=== PATIENT | female | born 1940 | race Caucasian/White ===

== ENCOUNTER 2016-10-31 15:32 | Inpatient (IN) | payer MEDICARE, OTHER ==
[~2016-10-31] VITALS: Ht 154.9 cm; Wt 49.4 kg
[2016-10-31] MEDS ORDERED: IV NS 0.9% 1,000 ML ONE (15:49)
[2016-10-31] MEDS ORDERED: ONDANSETRON HCL/PF 4 MG/2 ML VIAL ONE (15:49)
[2016-10-31] MEDS ORDERED: CALC-866 PO (15:57)
[2016-10-31] MEDS ORDERED: ISOS30TA6 PO (15:57)
[2016-10-31] MEDS ORDERED: FERR325T28 PO (15:57)
[2016-10-31] MEDS ORDERED: NICO1PAT23 TD (15:57)
[2016-10-31] MEDS ORDERED: BISO5TAB2 PO (15:57)
[2016-10-31] MEDS ORDERED: ALBU2.5V13 IH (15:57)
[2016-10-31] MEDS ORDERED: ATOR40TA PO (15:57)
[2016-10-31] MEDS ORDERED: CYAN500T4 PO (15:57)
[2016-10-31] MEDS ORDERED: CLOP75TA2 PO (15:57)
[2016-10-31] MEDS ORDERED: MOME13HF IH (15:57)
[2016-10-31] MEDS ORDERED: TIOT4MIS5 INH (15:57)
[2016-10-31] MEDS ORDERED: ALEN70TA45 PO (15:57)
[2016-10-31] MEDS ORDERED: ASPI81TA2 PO (15:57)
[2016-10-31] MEDS ORDERED: CHOL100044 PO (15:57)
[2016-10-31] MEDS ORDERED: FURO20TA4 PO (15:57)
[2016-10-31] MEDS ORDERED: ONDANSETRON HCL/PF 4 MG/2 ML VIAL IVP ONE (16:00)
[2016-10-31] MEDS ORDERED: IV NS 0.9% 500 ML BAG IV ONE (16:00)
[2016-10-31 16:06] LABS: BASOPHILS # (AUTO) 0.4 /CMM (0.0-0.2); BASOPHILS % (AUTO) 4.7 % (0.0-2.0); DIFF TOTAL % 100 %; EOSINOPHILS % (AUTO) 0.4 % (0.0-6.0); HEMATOCRIT 38 % (33-45); HEMOGLOBIN 12.6 g/dL (11.5-14.8); LYMPHOCYTES # (AUTO) 0.5 /CMM (0.8-4.8); LYMPHOCYTES % (AUTO) 6.2 % (20.0-44.0); MEAN CORPUSCULAR HEMOGLOBIN 29 PG (26.0-33.0); MEAN CORPUSCULAR HGB CONC 33 g/dl (31.0-36.0); MEAN CORPUSCULAR VOLUME 89 fL (82-100); MONOCYTES # (AUTO) 0.4 /CMM (0.1-1.30); MONOCYTES % (AUTO) 4.6 % (2.0-12.0); NEUTROPHILS # (AUTO) 6.7 /CMM (1.8-8.9); NEUTROPHILS % (AUTO) 84.1 % (43.0-81.0); PLATELET COUNT (AUTO) 134 /CMM (150-450)
[2016-10-31 16:17] LABS: CALCIUM, SERUM 8.5 mg/dL (8.5-10.1); CREATININE 1.2 mg/dL (0.6-1.3); POTASSIUM 3.2 mmol/L (3.5-5.1)
[2016-10-31 16:22] LABS: ALBUMIN 3.5 g/dL (3.4-5.0); BILIRUBIN,DIRECT 0.1 mg/dL (0.0-0.2); BILIRUBIN,TOTAL 0.5 mg/dL (0.2-1.0); INDIRECT BILIRUBIN 0.4 mg/dL (0.0-1.1); INR 0.97 (0.87-1.13); PROTHROMBIN TIME 10.2 SECS (9.5-12.7); TOTAL PROTEIN, SERUM 7.5 g/dL (6.4-8.2)
[2016-10-31 16:24] LABS: TROPONIN I 0.084 ng/mL (0.00-0.056)
[2016-10-31] MEDS ORDERED: POTASSIUM CL. PREMIX PERIPHER. 50 ML ONE (16:50)
[2016-10-31] MEDS ORDERED: ASPIRIN 325 MG TABLET ONE (16:50)
[2016-10-31] MEDS ORDERED: IV SET PRIMARY PUMP SET 1 EA INFUS.SET MC ONE ×3 (16:51→17:55)
[2016-10-31] MEDS ORDERED: NITROGLYCERIN PACKET 1 GM PACKET ONE (16:51)
[2016-10-31] MEDS ORDERED: ASPIRIN 325 MG TABLET PO ONE (17:00)
[2016-10-31] MEDS: POTASSIUM CL. PREMIX PERIPHER. 50 ML IV SCH ×4 (17:00→23:20)
[2016-10-31] MEDS ORDERED: NITROGLYCERIN PACKET 1 GM PACKET TOP ONE (17:00)
[2016-10-31] MEDS ORDERED: IV NS 0.9% 500 ML IV ONE (17:26)
[2016-10-31] MEDS: IV NS 0.9% 500 ML BAG IV ONE ×2 (17:30→17:31)
[2016-10-31] MEDS ORDERED: LEVOFLOXACIN 500 MG /D5W 100ML 0 ML IV ONE (17:31)
[2016-10-31] MEDS ORDERED: LEVOFLOXACIN 750 MG /D5W 150ML 150 ML IV ONE (17:34)
[2016-10-31] MEDS ORDERED: AZITHROMYCIN 500 MG in IV D5W 250 ML IV ONE (18:00)
[2016-10-31] MEDS ORDERED: LEVOFLOXACIN 750 MG /D5W 150ML PIGGYBACK IV ONE (18:00)
[2016-10-31] MEDS ORDERED: POTASSIUM CL. PREMIX PERIPHER. 150 ML ONE (18:27)
[2016-10-31 20:15] VITALS: BP 151/75
[2016-10-31 23:34] VITALS: BP 151/75
[2016-11-01] VITALS: BP 144/71
[2016-11-01] MEDS ORDERED: ZOLPIDEM TARTRATE 5 MG TABLET PO PRN (00:30)
[2016-11-01] MEDS ORDERED: MORPHINE SULFATE INJ 2 MG/ML DISP.SYRIN IV PRN (00:30)
[2016-11-01] MEDS ORDERED: Z GUARD REMEDY 2 OZ OINT TP PRN (00:30)
[2016-11-01] MEDS ORDERED: ONDANSETRON HCL/PF 4 MG/2 ML VIAL IVP PRN (00:30)
[2016-11-01] MEDS ORDERED: ENOXAPARIN SODIUM 40 MG/0.4 ML DISP.SYRIN SQ SCH (00:30)
[2016-11-01] MEDS ORDERED: ACETAMINOPHEN 325 MG TABLET PO PRN (00:30)
[2016-11-01] MEDS ORDERED: ENOXAPARIN SODIUM 40 MG/0.4 ML DISP.SYRIN SQ ONE (01:58)
[2016-11-01 04:13] VITALS: BP 121/54
[2016-11-01 06:56] VITALS: BP 143/67
[2016-11-01] MEDS: CYANOCOBALAMIN 500 MCG TABLET PO SCH (08:43)
[2016-11-01] MEDS: CLOPIDOGREL BISULFATE 75 MG TABLET PO SCH (08:44)
[2016-11-01] MEDS: ASPIRIN 81 MG TAB.CHEW PO SCH (08:44)
[2016-11-01] MEDS: FERROUS SULFATE (325 MG) 325 MG/TAB TABLET PO SCH ×3 (08:45→16:29)
[2016-11-01] MEDS: CHOLECALCIFEROL 1,000 UNIT TABLET (VIT D3) PO SCH (08:45)
[2016-11-01] MEDS: ATORVASTATIN 40 MG TABLET PO SCH (08:45)
[2016-11-01] MEDS: NICOTINE PATCH (7MG) 7 MG PATCH.TD24 TD SCH (08:45)
[2016-11-01] MEDS: ISOSORBIDE MONONITRATE (30MG) 30 MG TAB.SR.24H PO SCH (08:45)
[2016-11-01] MEDS ORDERED: FUROSEMIDE 20 MG TABLET PO SCH (09:00)
[2016-11-01] MEDS: PANTOPRAZOLE 40 MG TABLET.DR PO SCH (09:03)
[2016-11-01] MEDS: FLUTICASONE/SALMETEROL DISKUS IH SCH ×2 (09:03→16:29)
[2016-11-01 09:43] LABS: DIFF TOTAL % 100 %; HEMATOCRIT 32 % (33-45); HEMOGLOBIN 10.5 g/dL (11.5-14.8); LYMPHOCYTES # (AUTO) 0.6 /CMM (0.8-4.8); LYMPHOCYTES % (AUTO) 6.8 % (20.0-44.0); MEAN CORPUSCULAR HEMOGLOBIN 30 PG (26.0-33.0); MEAN CORPUSCULAR HGB CONC 33 g/dl (31.0-36.0); MEAN CORPUSCULAR VOLUME 90 fL (82-100); MONOCYTES # (AUTO) 0.3 /CMM (0.1-1.30); MONOCYTES % (AUTO) 3.1 % (2.0-12.0); NEUTROPHILS # (AUTO) 8.5 /CMM (1.8-8.9); NEUTROPHILS % (AUTO) 90.1 % (43.0-81.0); PLATELET COUNT (AUTO) 112 /CMM (150-450); RED BLOOD CELL COUNT(AUTO) 3.57 MIL/uL (4.0-5.2); WHITE BLOOD COUNT (AUTO) 9.4 K/uL (4.3-11.0)
[2016-11-01 09:45] LABS: CALCIUM, SERUM 7.5 mg/dL (8.5-10.1); CREATININE 1.3 mg/dL (0.6-1.3); POTASSIUM 3.8 mmol/L (3.5-5.1)
[2016-11-01 09:52] LABS: ALBUMIN 2.7 g/dL (3.4-5.0); BILIRUBIN,TOTAL 0.4 mg/dL (0.2-1.0); PHOSPHORUS 2.5 mg/dL (2.5-4.9); TOTAL PROTEIN, SERUM 6.2 g/dL (6.4-8.2)
[2016-11-01 10:03] LABS: THYROID STIMULATING HORMONE 0.982 uIU/mL (0.358-3.74)
[2016-11-01] MEDS ORDERED: IV SET PRIMARY PUMP SET 1 EA INFUS.SET MC ONE (10:17)
[2016-11-01] MEDS: IV NS 0.9% 1,000 ML IV PRN (10:20)
[2016-11-01 12:00] VITALS: BP 113/58
[2016-11-01] MEDS ORDERED: PEG 3350/NA SULF,BICARB,CL/KCL 4,000 ML BOTTLE PO ONE (14:30)
[2016-11-01 16:00] VITALS: BP 134/72
[2016-11-01] MEDS: BISOPROLOL FUMARATE 5 MG TABLET PO SCH (17:15)
[2016-11-01] MEDS: IPRATROPIUM NEB FS 0.5 MG/2.5 ML AMPUL.NEB NEB SCH (19:30)
[2016-11-01 20:00] VITALS: BP 164/79
[2016-11-01] MEDS: ENOXAPARIN SODIUM 30 MG/0.3 ML DISP.SYRIN SQ SCH (21:43)
[2016-11-02] VITALS: BP 138/76
[2016-11-02] MEDS: IV NS 0.9% 1,000 ML IV PRN ×2 (00:29→17:40)
[2016-11-02] MEDS: IPRATROPIUM NEB FS 0.5 MG/2.5 ML AMPUL.NEB NEB SCH ×4 (01:30→19:18)
[2016-11-02 04:00] VITALS: BP 172/78
[2016-11-02] MEDS ORDERED: ALENDRONATE 70 MG TABLET PO SCH (07:30)
[2016-11-02 07:38] LABS: DIFF TOTAL % 100 %; EOSINOPHILS % (AUTO) 0.4 % (0.0-6.0); HEMATOCRIT 31 % (33-45); HEMOGLOBIN 10.2 g/dL (11.5-14.8); LYMPHOCYTES # (AUTO) 0.8 /CMM (0.8-4.8); LYMPHOCYTES % (AUTO) 11.6 % (20.0-44.0); MEAN CORPUSCULAR HEMOGLOBIN 30 PG (26.0-33.0); MEAN CORPUSCULAR HGB CONC 33 g/dl (31.0-36.0); MEAN CORPUSCULAR VOLUME 90 fL (82-100); MONOCYTES # (AUTO) 0.4 /CMM (0.1-1.30); MONOCYTES % (AUTO) 5.5 % (2.0-12.0); NEUTROPHILS # (AUTO) 5.9 /CMM (1.8-8.9); NEUTROPHILS % (AUTO) 82.5 % (43.0-81.0); PLATELET COUNT (AUTO) 103 /CMM (150-450); RED BLOOD CELL COUNT(AUTO) 3.43 MIL/uL (4.0-5.2); WHITE BLOOD COUNT (AUTO) 7.1 K/uL (4.3-11.0)
[2016-11-02 08:00] VITALS: BP 162/76
[2016-11-02 08:06] LABS: THYROID STIMULATING HORMONE 1.257 uIU/mL (0.358-3.74)
[2016-11-02 08:20] LABS: ALBUMIN 2.6 g/dL (3.4-5.0); BILIRUBIN,TOTAL 0.3 mg/dL (0.2-1.0); CALCIUM, SERUM 7.3 mg/dL (8.5-10.1); CREATININE 1.2 mg/dL (0.6-1.3); PHOSPHORUS 2.7 mg/dL (2.5-4.9); TOTAL PROTEIN, SERUM 6.1 g/dL (6.4-8.2)
[2016-11-02] MEDS: ATORVASTATIN 40 MG TABLET PO SCH (08:31)
[2016-11-02] MEDS: CLOPIDOGREL BISULFATE 75 MG TABLET PO SCH (08:31)
[2016-11-02] MEDS: CYANOCOBALAMIN 500 MCG TABLET PO SCH (08:31)
[2016-11-02] MEDS: PANTOPRAZOLE 40 MG TABLET.DR PO SCH (08:31)
[2016-11-02] MEDS: NICOTINE PATCH (7MG) 7 MG PATCH.TD24 TD SCH (08:31)
[2016-11-02] MEDS: ASPIRIN 81 MG TAB.CHEW PO SCH (08:31)
[2016-11-02] MEDS: CHOLECALCIFEROL 1,000 UNIT TABLET (VIT D3) PO SCH (08:31)
[2016-11-02] MEDS: FLUTICASONE/SALMETEROL DISKUS IH SCH ×2 (08:32→17:38)
[2016-11-02] MEDS: ISOSORBIDE MONONITRATE (30MG) 30 MG TAB.SR.24H PO SCH (08:32)
[2016-11-02] MEDS: VALSARTAN 80 MG TABLET PO SCH (08:34)
[2016-11-02] MEDS ORDERED: SECONDARY IV SET 1 EA INFUS.SET MC ONE (14:19)
[2016-11-02] MEDS: SOD FERRIC GLUC 125 MG in IV NS 0.9% 100 ML IV SCH (14:21)
[2016-11-02 16:31] VITALS: BP 154/83
[2016-11-02] MEDS: BISOPROLOL FUMARATE 5 MG TABLET PO SCH (17:38)
[2016-11-02] MEDS: ALBUTEROL FS 2.5 MG/0.5 ML VIAL.NEB IH PRN (19:18)
[2016-11-02 20:00] VITALS: BP 181/87
[2016-11-02] MEDS ORDERED: hydrALAZINE HCL 10 MG TABLET ONE (20:58)
[2016-11-02] MEDS: ENOXAPARIN SODIUM 30 MG/0.3 ML DISP.SYRIN SQ SCH (21:00)
[2016-11-02] MEDS: hydrALAZINE HCL 10 MG TABLET PO PRN (21:06)
[2016-11-03] MEDS ORDERED: LORAZEPAM INJ 2 MG/ML VIAL ONE (01:02)
[2016-11-03] MEDS: LORAZEPAM INJ 2 MG/ML VIAL IV PRN ×3 (01:08→23:44)
[2016-11-03] MEDS: IPRATROPIUM NEB FS 0.5 MG/2.5 ML AMPUL.NEB NEB SCH ×4 (01:09→19:32)
[2016-11-03 06:28] LABS: ALBUMIN 2.5 g/dL (3.4-5.0); BILIRUBIN,TOTAL 0.3 mg/dL (0.2-1.0); CALCIUM, SERUM 7.2 mg/dL (8.5-10.1); PHOSPHORUS 2.7 mg/dL (2.5-4.9); POTASSIUM 3.4 mmol/L (3.5-5.1); TOTAL PROTEIN, SERUM 5.8 g/dL (6.4-8.2)
[2016-11-03] MEDS ORDERED: hydrALAZINE HCL 10 MG TABLET ONE (06:32)
[2016-11-03] MEDS: hydrALAZINE HCL 10 MG TABLET PO PRN (06:36)
[2016-11-03 06:37] LABS: TROPONIN I 0.099 ng/mL (0.00-0.056)
[2016-11-03 06:42] LABS: BASOPHILS % (AUTO) 0.3 % (0.0-2.0); DIFF TOTAL % 100 %; EOSINOPHILS % (AUTO) 0.7 % (0.0-6.0); HEMATOCRIT 30 % (33-45); HEMOGLOBIN 9.8 g/dL (11.5-14.8); LYMPHOCYTES # (AUTO) 0.6 /CMM (0.8-4.8); LYMPHOCYTES % (AUTO) 10.3 % (20.0-44.0); MEAN CORPUSCULAR HEMOGLOBIN 30 PG (26.0-33.0); MEAN CORPUSCULAR HGB CONC 33 g/dl (31.0-36.0); MEAN CORPUSCULAR VOLUME 90 fL (82-100); MONOCYTES # (AUTO) 0.4 /CMM (0.1-1.30); MONOCYTES % (AUTO) 6.2 % (2.0-12.0); NEUTROPHILS # (AUTO) 4.7 /CMM (1.8-8.9); NEUTROPHILS % (AUTO) 82.5 % (43.0-81.0); PLATELET COUNT (AUTO) 114 /CMM (150-450); WHITE BLOOD COUNT (AUTO) 5.7 K/uL (4.3-11.0)
[2016-11-03] MEDS: PANTOPRAZOLE 40 MG TABLET.DR PO SCH ×2 (07:30→13:37)
[2016-11-03 08:00] VITALS: BP 164/77
[2016-11-03] MEDS: ASPIRIN 81 MG TAB.CHEW PO SCH ×2 (08:27→13:37)
[2016-11-03] MEDS: FLUTICASONE/SALMETEROL DISKUS IH SCH ×2 (08:27→17:03)
[2016-11-03] MEDS: NICOTINE PATCH (7MG) 7 MG PATCH.TD24 TD SCH (08:28)
[2016-11-03] MEDS: CHOLECALCIFEROL 1,000 UNIT TABLET (VIT D3) PO SCH ×2 (08:28→13:37)
[2016-11-03] MEDS: ATORVASTATIN 40 MG TABLET PO SCH ×2 (08:28→13:36)
[2016-11-03] MEDS: CLOPIDOGREL BISULFATE 75 MG TABLET PO SCH ×2 (08:28→13:36)
[2016-11-03] MEDS: ISOSORBIDE MONONITRATE (30MG) 30 MG TAB.SR.24H PO SCH ×2 (08:28→13:37)
[2016-11-03] MEDS: CYANOCOBALAMIN 500 MCG TABLET PO SCH ×2 (08:28→13:36)
[2016-11-03] MEDS: VALSARTAN 80 MG TABLET PO SCH ×2 (08:28→13:36)
[2016-11-03] MEDS ORDERED: POTASSIUM CHLORIDE 20 MEQ TAB.PRT.SR PO SCH (09:00)
[2016-11-03] MEDS: Magnesium 1GM/D5W 100ML PREMIX 100 ML IV SCH ×2 (10:04→11:53)
[2016-11-03 13:25] VITALS: BP 162/83
[2016-11-03] MEDS: POTASSIUM CHLORIDE 20 MEQ TAB.PRT.SR PO SCH ×3 (13:27→15:35)
[2016-11-03] MEDS: SOD FERRIC GLUC 125 MG in IV NS 0.9% 100 ML IV SCH (14:31)
[2016-11-03 16:00] VITALS: BP 141/70
[2016-11-03] MEDS: BISOPROLOL FUMARATE 5 MG TABLET PO SCH (17:06)
[2016-11-03 20:00] VITALS: BP 149/70
[2016-11-03] MEDS: ENOXAPARIN SODIUM 30 MG/0.3 ML DISP.SYRIN SQ SCH (21:00)
[2016-11-04] MEDS: IPRATROPIUM NEB FS 0.5 MG/2.5 ML AMPUL.NEB NEB SCH ×4 (00:38→20:02)
[2016-11-04] MEDS: IV NS 0.9% 1,000 ML IV PRN (04:58)
[2016-11-04 06:51] LABS: BASOPHILS % (AUTO) 0.2 % (0.0-2.0); DIFF TOTAL % 100 %; EOSINOPHILS # (AUTO) 0.1 /CMM (0.0-0.7); EOSINOPHILS % (AUTO) 1.4 % (0.0-6.0); HEMATOCRIT 31 % (33-45); HEMOGLOBIN 10.3 g/dL (11.5-14.8); LYMPHOCYTES # (AUTO) 0.8 /CMM (0.8-4.8); LYMPHOCYTES % (AUTO) 12.1 % (20.0-44.0); MEAN CORPUSCULAR HEMOGLOBIN 30 PG (26.0-33.0); MEAN CORPUSCULAR HGB CONC 34 g/dl (31.0-36.0); MEAN CORPUSCULAR VOLUME 89 fL (82-100); MONOCYTES # (AUTO) 0.4 /CMM (0.1-1.30); MONOCYTES % (AUTO) 5.7 % (2.0-12.0); NEUTROPHILS # (AUTO) 5.2 /CMM (1.8-8.9); NEUTROPHILS % (AUTO) 80.6 % (43.0-81.0); PLATELET COUNT (AUTO) 132 /CMM (150-450); RED BLOOD CELL COUNT(AUTO) 3.48 MIL/uL (4.0-5.2); WHITE BLOOD COUNT (AUTO) 6.4 K/uL (4.3-11.0)
[2016-11-04 07:20] LABS: CALCIUM, SERUM 8.1 mg/dL (8.5-10.1); CREATININE 1.3 mg/dL (0.6-1.3); POTASSIUM 4.5 mmol/L (3.5-5.1)
[2016-11-04 08:00] VITALS: BP 164/78
[2016-11-04] MEDS: NICOTINE PATCH (7MG) 7 MG PATCH.TD24 TD SCH (09:07)
[2016-11-04] MEDS: ATORVASTATIN 40 MG TABLET PO SCH (09:07)
[2016-11-04] MEDS: VALSARTAN 80 MG TABLET PO SCH (09:08)
[2016-11-04] MEDS: FLUTICASONE/SALMETEROL DISKUS IH SCH ×2 (09:08→17:48)
[2016-11-04] MEDS: CLOPIDOGREL BISULFATE 75 MG TABLET PO SCH (09:09)
[2016-11-04] MEDS: CYANOCOBALAMIN 500 MCG TABLET PO SCH (09:09)
[2016-11-04] MEDS: ISOSORBIDE MONONITRATE (30MG) 30 MG TAB.SR.24H PO SCH (09:09)
[2016-11-04] MEDS: CHOLECALCIFEROL 1,000 UNIT TABLET (VIT D3) PO SCH (09:10)
[2016-11-04] MEDS: ASPIRIN 81 MG TAB.CHEW PO SCH (09:10)
[2016-11-04] MEDS: PANTOPRAZOLE 40 MG TABLET.DR PO SCH (09:10)
[2016-11-04] MEDS: LORAZEPAM INJ 2 MG/ML VIAL IV PRN ×2 (13:09→20:30)
[2016-11-04] MEDS: ALBUTEROL FS 2.5 MG/0.5 ML VIAL.NEB IH PRN (13:29)
[2016-11-04] MEDS: SOD FERRIC GLUC 125 MG in IV NS 0.9% 100 ML IV SCH (13:59)
[2016-11-04 16:00] VITALS: BP 147/72
[2016-11-04] MEDS: BISOPROLOL FUMARATE 5 MG TABLET PO SCH (17:48)
[2016-11-04] MEDS: ACETYLCYSTEINE 10% 3,000 MG/30 ML VIAL PO SCH (18:28)
[2016-11-04 20:00] VITALS: BP 176/83
[2016-11-04] MEDS: hydrALAZINE HCL 10 MG TABLET PO PRN (20:33)
[2016-11-04] MEDS: ENOXAPARIN SODIUM 30 MG/0.3 ML DISP.SYRIN SQ SCH (23:18)
[2016-11-05] MEDS: IPRATROPIUM NEB FS 0.5 MG/2.5 ML AMPUL.NEB NEB SCH ×4 (01:10→19:30)
[2016-11-05] MEDS: LORAZEPAM INJ 2 MG/ML VIAL IV PRN ×2 (06:07→17:37)
[2016-11-05 06:49] LABS: BASOPHILS % (AUTO) 0.1 % (0.0-2.0); DIFF TOTAL % 100 %; EOSINOPHILS % (AUTO) 0.5 % (0.0-6.0); HEMATOCRIT 31 % (33-45); HEMOGLOBIN 10.5 g/dL (11.5-14.8); LYMPHOCYTES # (AUTO) 0.6 /CMM (0.8-4.8); MEAN CORPUSCULAR HEMOGLOBIN 30 PG (26.0-33.0); MEAN CORPUSCULAR HGB CONC 34 g/dl (31.0-36.0); MEAN CORPUSCULAR VOLUME 89 fL (82-100); MONOCYTES # (AUTO) 0.4 /CMM (0.1-1.30); MONOCYTES % (AUTO) 6.7 % (2.0-12.0); NEUTROPHILS # (AUTO) 5.2 /CMM (1.8-8.9); NEUTROPHILS % (AUTO) 82.7 % (43.0-81.0); PLATELET COUNT (AUTO) 137 /CMM (150-450); RED BLOOD CELL COUNT(AUTO) 3.53 MIL/uL (4.0-5.2); WHITE BLOOD COUNT (AUTO) 6.3 K/uL (4.3-11.0)
[2016-11-05 07:08] LABS: CALCIUM, SERUM 8.4 mg/dL (8.5-10.1); CREATININE 1.2 mg/dL (0.6-1.3)
[2016-11-05 08:00] VITALS: BP 160/85
[2016-11-05] MEDS: PANTOPRAZOLE 40 MG TABLET.DR PO SCH (08:10)
[2016-11-05] MEDS ORDERED: IV NS 0.9% 250 ML IV ONE (08:29)
[2016-11-05] MEDS ORDERED: CT SWABBABLE VALVE TRANS SET 1 EA INFUS.SET MC ONE (08:29)
[2016-11-05] MEDS ORDERED: IOHEXOL-300 100 ML VIAL IV ONE (08:30)
[2016-11-05] MEDS: NICOTINE PATCH (7MG) 7 MG PATCH.TD24 TD SCH (09:34)
[2016-11-05] MEDS: ATORVASTATIN 40 MG TABLET PO SCH (09:35)
[2016-11-05] MEDS: ASPIRIN 81 MG TAB.CHEW PO SCH (09:35)
[2016-11-05] MEDS: CYANOCOBALAMIN 500 MCG TABLET PO SCH (09:35)
[2016-11-05] MEDS: ISOSORBIDE MONONITRATE (30MG) 30 MG TAB.SR.24H PO SCH (09:35)
[2016-11-05] MEDS: VALSARTAN 80 MG TABLET PO SCH (09:36)
[2016-11-05] MEDS: CHOLECALCIFEROL 1,000 UNIT TABLET (VIT D3) PO SCH (09:36)
[2016-11-05] MEDS: CLOPIDOGREL BISULFATE 75 MG TABLET PO SCH (09:36)
[2016-11-05] MEDS: ACETYLCYSTEINE 10% 3,000 MG/30 ML VIAL PO SCH ×2 (09:44→17:10)
[2016-11-05] MEDS: FLUTICASONE/SALMETEROL DISKUS IH SCH ×2 (09:45→17:11)
[2016-11-05] MEDS: SOD FERRIC GLUC 125 MG in IV NS 0.9% 100 ML IV SCH (15:57)
[2016-11-05 16:00] VITALS: BP 151/77
[2016-11-05] MEDS: BISOPROLOL FUMARATE 5 MG TABLET PO SCH (17:10)
[2016-11-05 20:00] VITALS: BP 143/82
[2016-11-05] MEDS: ENOXAPARIN SODIUM 30 MG/0.3 ML DISP.SYRIN SQ SCH (21:10)
[2016-11-06] MEDS: IPRATROPIUM NEB FS 0.5 MG/2.5 ML AMPUL.NEB NEB SCH ×4 (00:55→14:16)
[2016-11-06 08:07] VITALS: BP 168/97
[2016-11-06 09:00] VITALS: BP 168/99
[2016-11-06] MEDS: ACETYLCYSTEINE 10% 3,000 MG/30 ML VIAL PO SCH (09:00)
[2016-11-06] MEDS: ALBUTEROL FS 2.5 MG/0.5 ML VIAL.NEB IH PRN (09:01)
[2016-11-06] MEDS: PANTOPRAZOLE 40 MG TABLET.DR PO SCH (09:19)
[2016-11-06] MEDS: ISOSORBIDE MONONITRATE (30MG) 30 MG TAB.SR.24H PO SCH (09:19)
[2016-11-06] MEDS: ASPIRIN 81 MG TAB.CHEW PO SCH (09:19)
[2016-11-06 09:20] VITALS: BP 168/99
[2016-11-06] MEDS: ATORVASTATIN 40 MG TABLET PO SCH (09:20)
[2016-11-06] MEDS: CYANOCOBALAMIN 500 MCG TABLET PO SCH (09:20)
[2016-11-06] MEDS: CLOPIDOGREL BISULFATE 75 MG TABLET PO SCH (09:20)
[2016-11-06] MEDS: VALSARTAN 80 MG TABLET PO SCH (09:20)
[2016-11-06] MEDS: NICOTINE PATCH (7MG) 7 MG PATCH.TD24 TD SCH (09:20)
[2016-11-06] MEDS: CHOLECALCIFEROL 1,000 UNIT TABLET (VIT D3) PO SCH (09:20)
[2016-11-06] MEDS: FLUTICASONE/SALMETEROL DISKUS IH SCH (09:23)
[2016-11-06 11:12] LABS: *SPE ALBUMIN 2.8 g/dL (2.9-4.4)
[2016-11-07 12:37] LABS: HEPATITIS C VIRUS AB <0.1 s/co ratio (0.0-0.9)
== END 2016-11-06 14:45 | DRG 280 ==
LOC: ER 15:37 → TELE 18:24 → MED 11-02 10:20
PROVIDERS: ADMIT Nurse Practitioner Acute Care; ATTEND Nurse Practitioner Acute Care
PROC: 0DJD8ZZ Inspection of Lower Intestinal Tract, Via Natural or Artificial Opening Endoscopic (ICD-10-PCS; principal; 2016-11-02)
DX: I21.4 Non-ST elevation (NSTEMI) myocardial infarction (principal); N17.0 Acute kidney failure with tubular necrosis; K50.90 Crohn's disease, unspecified, without complications; I31.3 Pericardial effusion (noninflammatory); I25.10 Atherosclerotic heart disease of native coronary artery without angina pectoris; E87.6 Hypokalemia; Z95.5 Presence of coronary angioplasty implant and graft; D50.9 Iron deficiency anemia, unspecified; F32.9 Major depressive disorder, single episode, unspecified; M81.0 Age-related osteoporosis without current pathological fracture; Z85.038 Personal history of other malignant neoplasm of large intestine; Z87.891 Personal history of nicotine dependence; Z90.710 Acquired absence of both cervix and uterus; Z90.6 Acquired absence of other parts of urinary tract; Z93.3 Colostomy status; I51.7 Cardiomegaly; R55 Syncope and collapse; R93.5 Abnormal findings on diagnostic imaging of other abdominal regions, including retroperitoneum; E83.42 Hypomagnesemia; K43.5 Parastomal hernia without obstruction or gangrene; N26.1 Atrophy of kidney (terminal); D18.03 Hemangioma of intra-abdominal structures
CPT/HCPCS: 36415; 71010-TC; 74178; 76700-TC; 80048-TC; 80053-TC; 80061-TC; 80076-TC; 82105; 82306; 82378; 82728-TC; 82746; 83540-TC; 83690-TC; 83735-TC; 84100-TC; 84155; 84165; 84439-TC; 84443-TC; 84484-TC; 85025-TC; 85730-TC; 86301; 86706; 86803; 87040-TC; 87081-TC; 87340; 92521; 93307-TC; 94799-TC; 97001-TC; 97003-TC; 97116-TC; 97530-TC; A4606; A6402; J0456; J1650; J1956; J2060; J2405; J2916; J3475; J3480; J7030; J7040; J7050; J7060; Q9967; Z7610